=== PATIENT | male | born 1970 | race African-American/Black ===

== ENCOUNTER 2017-07-17 15:16 | Emergency (ER) | payer OTHER ==
[~2017-07-17] VITALS: Ht 175.3 cm; Wt 112.4 kg
[2017-07-17] MEDS ORDERED: DELTASONE20 M1 PO (16:30)
[2017-07-17] MEDS ORDERED: PROAIR HFA8.5 GM IH (16:30)
[2017-07-17] MEDS ORDERED: ZITHROMAX Z-PA250 MG PO (16:30)
[2017-07-17 16:53] VITALS: BP 126/74
== END 2017-07-17 16:56 | disposition home or self-care (01) ==
LOC: EME 15:16 → EXP 15:16
PROVIDERS: Physician Assistant
DX: J20.9 Acute bronchitis, unspecified (principal); D86.9 Sarcoidosis, unspecified; K74.60 Unspecified cirrhosis of liver; E11.9 Type 2 diabetes mellitus without complications; M19.90 Unspecified osteoarthritis, unspecified site; Z79.84 Long term (current) use of oral hypoglycemic drugs; F17.200 Nicotine dependence, unspecified, uncomplicated
CPT/HCPCS: 87502; 93005; 94640; 99281; 99284